=== PATIENT | male | born 1990 | race Hispanic/Latino ===

== ENCOUNTER 2023-06-24 20:26 | Emergency (ER) | payer OTHER ==
[2023-06-24] MEDS ORDERED: LIDOCAINE 1% 20 ML MDV ONE (21:11)
--- NOTE | 2023-06-24 21:26 | RAD REPORT ---
EXAM DESCRIPTION: SHAHANA CLEMONS - 06/24/2023 9:14 pm CLINICAL HISTORY: left middle finger pain COMPARISON: No comparisons TECHNIQUE: Left hand, 3 views. FINDINGS: No fracture is identified. There is no dislocation or periosteal reaction noted. Joint alignment is maintained. No foreign body or other soft tissue abnormality. IMPRESSION: Negative left hand examination.
[2023-06-24] MEDS ORDERED: TDAP (DIPHTH,PERTUSS(ACELL),TET VAC) 0.5 ML VIAL IMVAC ONE (21:47)
--- NOTE | 2023-06-24 22:16 | ER ---
Nurse's Notes [facility] Name: Shabbir Joyce Age: 33 yrs Sex: Male : 1990 Arrival Date: 06/24/2023 Time: 20:26 Bed 19 Private MD: Diagnosis: Left middle finger distal finger contusion, left middle finger distal finger crush injury, left middle finger fingernail avulsion Presentation: 06/24 20:39 Chief complaint: RIGHT 3RD FINGER INJURY, SMASHED DISTAL PHALANGE IN DOOR. Coronavirus bp screen: At this time, the client does not indicate any symptoms associated with coronavirus-19. Ebola Screen: No symptoms or risks identified at this time. Initial Sepsis Screen: Does the patient meet any 2 criteria? No. Patient's initial sepsis screen is negative. Does the patient have a suspected source of infection? No. Patient's initial sepsis screen is negative. Risk Assessment: Do you want to hurt yourself or someone else? Patient reports no desire to harm self or others. Onset of symptoms was June 24, 2023 at 19:30. 20:39 Method Of Arrival: Law Enforcement: [place] [employer] bp 20:39 Acuity: JUAN JOSE 3 bp Triage Assessment: 20:41 General: Appears in no apparent distress. Behavior is calm, cooperative, appropriate bp for age. Pain: Complains of pain in left hand. EENT: No deficits noted. Musculoskeletal: Swelling present in left hand. Injury Description: Crush injury sustained to left hand. Historical: - Allergies: 20:41 No Known Allergies; bp - Home Meds: 20:41 Unable to obtain [Active]; bp - PMHx: 20:41 Bipolar disorder; Schizophrenia; bp - Immunization history:: Adult Immunizations up to date. - Social history:: Smoking status: Patient denies any tobacco usage or history of. - Family history:: not pertinent. Screenin:42 [facility] ED Fall Risk Assessment (Adult) History of falling in the last 3 months, bp including since admission No falls in past 3 months (0 pts). Abuse screen: Denies threats or abuse. Denies injuries from another. Nutritional screening: No deficits noted. Tuberculosis screening: No symptoms or risk factors identified. Assessment: 20:42 General: SEE TRIAGE NOTE. bp Vital Signs: 20:39 BP 125 / 79; Pulse 81; Resp 16; Temp 98; Pulse Ox 98% ; bp ED Course: 20:30 Patient arrived in ED. rv1 20:33 Rashawn Malcolm MD is Attending Physician. sp4 20:39 Daniel Flood, RN is Primary Nurse. bp 20:41 Triage completed. bp 20:41 Arm band placed on. bp 20:42 Patient has correct armband on for positive identification. Bed in low position. Call bp light in reach. Side rails up X2. 21:15 Hand Left 3 View XRAY In Process Unspecified. EDMS Administered Medications: 21:01 Drug: Lidocaine Infiltration (1 %) 20 ml 20 ml Infiltration once; to bedside Volume: 20 bp ml; Route: Infiltration; 21:42 Drug: Tetanus-Diphtheria Toxoid IM Adult 0.5 ml IM once; Provide Vaccine Information bp Statement (VIS). 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 Exp: 01/24/2025. Lot #: [id number]. } Route: IM; Site: right deltoid; 22:19 Follow up: Response: No adverse reaction bp 22:29 Drug: Ibuprofen PO 800 mg PO once Route: PO; bp 22:29 Drug: Acetaminophen PO 1000 mg PO once Route: PO; bp 22:29 Drug: Ondansetron PO 4 mg PO once Route: PO; bp Medication: 20:42 VIS not applicable for this client. bp Outcome: 22:16 Discharge ordered by . sp4 22:36 Patient left the ED. bp Signatures: Dispatcher [employer] EDMS Daniel Flood, JADEN STANLEY bp Betina Torrez rv1 Rashawn Malcolm MD MD sp4
--- NOTE | 2023-06-24 22:16 | EDPHYS ---
Physician Documentation [facility] Name: Shabbir Joyce Age: 33 yrs Sex: Male : 1990 Arrival Date: 06/24/2023 Time: 20:26 Bed 19 Private MD: ED Physician Rashawn Malcolm HPI: 06/24 20:33 This 33 yrs old Male presents to ER via Unassigned with complaints of general sp4 complaint . 06/25 08:43 32-year-old prisoner presents with [employer] escort, after he smashed his left middle sp4 finger into the door/skilled nursing bar. Patient now has complete left middle finger fingernail avulsion and crush injury of the distal middle finger phalanx. No other injury reported. Past medical history reveals bipolar disorder and schizophrenia. . Historical: - Allergies: 06/24 20:41 No Known Allergies; bp - Home Meds: 20:41 Unable to obtain [Active]; bp - PMHx: 20:41 Bipolar disorder; Schizophrenia; bp - Immunization history:: Adult Immunizations up to date. - Social history:: Smoking status: Patient denies any tobacco usage or history of. - Family history:: not pertinent. ROS: 06/25 08:43 Constitutional: Negative for fever, chills, and weight loss, MS/Extremity: Positive sp4 left middle finger pain, distal finger crush injury, distal fingernail avulsion All other systems are negative, Exam: 08:43 Constitutional: This is a well developed, well nourished patient who is awake, alert, sp4 and in no acute distress. Head/Face: Normocephalic, atraumatic. Eyes: Pupils equal round and reactive to light, extra-ocular motions intact. Lids and lashes normal. Conjunctiva and sclera are not injected. Cornea within normal limits. Periorbital areas with no swelling, redness, or edema. ENT: Nares patent. No nasal discharge, no septal abnormalities noted. Tympanic membranes are normal and external auditory canals are clear. Oropharynx with no redness, swelling, or masses, exudates, or evidence of obstruction, uvula midline. Mucous membranes moist. Neck: Trachea midline, no thyromegaly or masses palpated, and no cervical lymphadenopathy. Supple, full range of motion without nuchal rigidity, or vertebral point tenderness. Chest/axilla: Normal chest wall appearance and motion. Nontender with no deformity. No lesions are appreciated. Cardiovascular: Regular rate and rhythm with a normal S1 and S2. No gallops, murmurs, or rubs. Normal PMI, no JVD. No pulse deficits. Respiratory: Lungs have equal breath sounds bilaterally, clear to auscultation and percussion. No rales, rhonchi or wheezes noted. No increased work of breathing, no retractions or nasal flaring. Abdomen/GI: Soft, non-tender, with normal bowel sounds. No distension or tympany. No guarding or rebound. No evidence of tenderness throughout. Back: No spinal tenderness. No costovertebral tenderness. Skin: Warm, dry with normal turgor. Normal color with no rashes, no lesions, and no evidence of cellulitis. MS/ Extremity: Pulses equal, no cyanosis. Neurovascular intact. Full, normal range of motion. Left middle finger distal phalanx crush injury, complete fingernail avulsion, pain and tenderness left middle finger distal phalanx Neuro: Awake and alert, GCS 15, oriented to person, place, time, and situation. Cranial nerves II-XII grossly intact. Motor strength 5/5 in all extremities. Sensory grossly intact. Psych: Awake, alert, with orientation to person, place and time. Behavior, mood, and affect are within normal limits Vital Signs: 06/24 20:39 BP 125 / 79; Pulse 81; Resp 16; Temp 98; Pulse Ox 98% ; bp Procedures: 06/25 08:43 Performed Wound care. . Left middle finger anesthetized digital block applied with sp4 lidocaine 1% no epinephrine. There is left middle finger fingernail avulsion. This was heavily irrigated with saline and peroxide and Xeroform dressing was applied with sterile Kerlix dressing. Advise dressing changes daily. No additional wound care required today. No complication. MDM: 06/24 20:40 Patient medically screened. sp4 06/25 08:43 Differential Diagnosis Crush injury, phalanx fracture, fracture dislocation. Data sp4 reviewed: vital signs, nurses notes, old medical records, radiologic studies, plain films. Consideration of Admission/Observation Escalation of care including admission/observation considered. ED course: X-ray revealed negative left hand examination. Wound care was provided, wound care instructions provided for the patient. Patient stable for discharge back to skilled nursing. . 06/24 20:38 Order name: Hand Left 3 View XRAY; Complete Time: 08:43 sp4 06/24 20:39 Order name: Dressing - Wound; Complete Time: 21:09 sp4 06/24 20:39 Order name: Gloves, Sterile; Complete Time: 21:09 sp4 06/24 20:39 Order name: Setup Suture Tray; Complete Time: 21: sp4 Administered Medications: 06/24 21:01 Drug: Lidocaine Infiltration (1 %) 20 ml 20 ml Infiltration once; to bedside Volume: 20 bp ml; Route: Infiltration; 21:42 Drug: Tetanus-Diphtheria Toxoid IM Adult 0.5 ml IM once; Provide Vaccine Information bp Statement (VIS). {Nursing Care Attendant: [employer] Exp: 01/24/2025. Lot #: [id number]. } Route: IM; Site: right deltoid; 22:19 Follow up: Response: No adverse reaction bp 22:29 Drug: Ibuprofen PO 800 mg PO once Route: PO; bp 22:29 Drug: Acetaminophen PO 1000 mg PO once Route: PO; bp 22:29 Drug: Ondansetron PO 4 mg PO once Route: PO; bp Disposition Summary: 06/24/23 22:16 Discharge Ordered Problem: new sp4 Symptoms: have improved sp4 Condition: Stable sp4 Diagnosis - Left middle finger distal finger contusion, left middle finger distal finger crush sp4 injury, left middle finger fingernail avulsion Followup: sp4 - With: Private Physician - When: 7 - 10 days - Reason: Recheck today's complaints Discharge Instructions: - Discharge Summary Sheet sp4 - Nail Avulsion sp4 Forms: - Patient Portal Instructions sp4 Prescriptions: - Ibuprofen 800 mg Oral Tablet - take 1 tablet by ORAL route every 8 hours As needed take with food; 30 tablet; sp4 Refills: 0, Product Selection Permitted Signatures: Dispatcher [employer] Daniel Cooper RN RN bp Potepalov, Sergey, MD MD sp4
[2023-06-24] MEDS ORDERED: ACETAMINOPHEN 500 MG TAB ONE (22:37)
[2023-06-24] MEDS ORDERED: IBUPROFEN 400 MG TAB ONE (22:37)
[2023-06-24] MEDS ORDERED: ONDANSETRON 4 MG (ODT) TAB ONE (22:38)
[2023-06-25 00:29] VITALS: BP 125/79; TEMP 98; O2SAT 98
== END 2023-06-24 22:36 | disposition home or self-care (01) ==
LOC: ER 20:26
DX: S61.313A Laceration without foreign body of left middle finger with damage to nail, initial encounter (principal); Z23 Encounter for immunization
CPT/HCPCS: 73130; 90471; 99284; Q0162; J2001